=== PATIENT | female | born 1945 | race Caucasian/White ===

== ENCOUNTER 2021-01-17 09:51 | Emergency (ER) | payer OTHER ==
[2021-01-17 10:29] VITALS: TEMP 98.3; BMI 32.0
[2021-01-17 13:10] LABS: SARS COV-2 MOLECULAR POSITIVE (NEGATIVE)
[2021-01-17] MEDS ORDERED: CASIRIVIMAB/IMDEVIMAB 10 ML in SODIUM CHLORIDE 100 ML IVPB ONE (13:19)
[2021-01-17 15:34] LABS: HEMATOCRIT 35.2 % (32.4-45.2); MCH 30.6 pg (25.7-33.7); MEAN CELL VOLUME 89.9 fl (80-96); MEAN PLT VOLUME 7.4 fl (7.5-11.1); PLATELET COUNT 157 10^3/uL (134-434); RBC 3.92 M/mm3 (3.60-5.2); RDW 15.2 % (11.6-15.6); WHITE BLOOD COUNT 3.5 K/mm3 (4.0-10.0)
[2021-01-17 15:57] LABS: BLOOD UREA NITROGEN 14.4 mg/dL (7-18); CALCIUM 8.9 mg/dL (8.5-10.1)
[2021-01-17 15:58] LABS: ALBUMIN 3.4 g/dl (3.4-5.0)
[2021-01-17 16:00] LABS: CREATININE 0.8 mg/dL (0.55-1.3)
[2021-01-17 16:01] LABS: TOT PROT 7.2 g/dl (6.4-8.2)
[2021-01-17 16:25] VITALS: BP 143/83; PULSE 75
[2021-01-18 08:06] LABS: SARS-CoV-2 NAA Detected (Not Detected)
== END 2021-01-17 16:24 | disposition home or self-care (01) ==
LOC: JCOVINFU 09:51
DX: U07.1 COVID-19 (principal)
CPT/HCPCS: 36415; 80053; 85027; 99284-25; C9803; Q0240; U0003; U0005

== ENCOUNTER 2023-02-05 09:50 | Emergency (ER) | payer OTHER ==
[2023-02-05 10:10] VITALS: BP 141/77; PULSE 78; RESP 20; TEMP 98.3; BMI 31.1
== END 2023-02-05 11:05 | disposition home or self-care (01) ==
LOC: FER 09:50
DX: R05.9 Cough, unspecified (principal); J06.9 Acute upper respiratory infection, unspecified; Z20.822 Contact with and (suspected) exposure to COVID-19
CPT/HCPCS: 0241U-QW; 71046-TC-FY; 99284-25